=== PATIENT | male | born 1975 | race Caucasian/White ===

== ENCOUNTER 2017-03-21 10:29 | Emergency (ER) | payer OTHER ==
[~2017-03-21] VITALS: Ht 188 cm; Wt 117.5 kg
[2017-03-21 10:48] VITALS: TEMP 36.7; Ht 188 cm; Wt 117.5 kg
[2017-03-21] MEDS ORDERED: ONDANSETRON INJ 2 MG/ML 2 ML VIAL IV STA (11:28)
[2017-03-21] MEDS ORDERED: SODIUM CHLORIDE 0.9% 1000ML 1,000 ML IV STA (11:28)
[2017-03-21] MEDS ORDERED: KETOROLAC TROMETHAMINE 30 MG/ML VIAL IV STA (11:28)
[2017-03-21 11:41] LABS: BASO % 0.1 %; BASO ABS # 0.01 K/uL (0-0.2); EOS % 0.3 %; EOS ABS # 0.03 K/uL (0-0.5); HEMATOCRIT 46.4 % (42-52); HEMOGLOBIN 16.2 g/dL (14.0-18.0); IG# 0.03 K/uL (0.00-0.02); LYMPH % 12.7 %; LYMPH ABS # 1.12 K/uL (1.2-3.4); MEAN CELL VOLUME 80.4 fL (80-100); MEAN CORPUSCULAR HEMOGLOBIN 28.1 pg (25-34); MEAN CORPUSCULAR HGB CONC 34.9 g/dl (32-36); MEAN PLATELET VOLUME 9.4 fL (7.4-10.4); MONO % 3.7 %; MONO ABS # 0.33 K/uL (0.11-0.59); NEUT % 82.9 %; PLATELET COUNT 215 K/uL (130-400); RED CELL DISTRIBUTION WIDTH CV 14.5 % (11.5-14.5); RED CELL DISTRIBUTION WIDTH SD 42.2 fL (36.4-46.3); WHITE BLOOD COUNT 8.82 K/uL (4.8-10.8)
[2017-03-21 12:03] LABS: ALBUMIN 4.6 gm/dl (3.4-5.0); CALCIUM 8.8 mg/dl (8.5-10.1); CREATININE 1.16 mg/dl (0.60-1.40); POTASSIUM 3.5 mmol/L (3.5-5.1)
[2017-03-21 12:06] LABS: TOTAL PROTEIN 7.8 gm/dl (6.4-8.2)
--- NOTE | 2017-03-21 12:23 | DIAGNOSTIC IMAGING REPORT ---
KUB HISTORY: Acute left flank pain EVALUATE FOR OBSTRUCTION/LEFT STONE COMPARISON: CT abdomen and pelvis 11/11/2014 FINDINGS: The bowel gas pattern is non-obstructive. There is no organomegaly. Renal shadows are partially obscured by bowel gas. There are questioned punctate calculi projecting over the interpolar and superior pole left kidney. No definite right-sided nephrolithiasis or ureteral calculi. No pneumoperitoneum or pneumatosis. No fracture. IMPRESSION: Probable left nephrolithiasis without ureteral calculi identified. Electronically signed by: Augustine Stewart M.D. 03/21/2017 12:21 PM Dictated Date/Time: 03/21/2017 12:19 PM
--- NOTE | 2017-03-21 12:55 | DIAGNOSTIC IMAGING REPORT ---
(RENAL)RETROPERITON COMP HISTORY: Flank pain EVALUATE FOR OBSTRUCTION/LEFT STONE COMPARISON: None. FINDINGS: Right kidney: Maximum dimension 13.4 cm. No evidence for hydronephrosis Left kidney: Maximum dimension 14.2 cm. Lateral left renal hydronephrosis. Potential 4 mm distal left ureteral calculus. Bladder: No bladder wall thickening. The bilateral ureteral jets were identified. IMPRESSION: 1. Normal right kidney. 2. Mild left renal hydronephrosis. 3. Probable 4 mm obstructing calculus distal left ureter. The above report was generated using voice recognition software. It may contain grammatical, syntax or spelling errors. Electronically signed by: Vern Rangel M.D. 03/21/2017 12:54 PM Dictated Date/Time: 03/21/2017 12:52 PM
[2017-03-21] MEDS ORDERED: OXYC1TAB3 PO (13:27)
[2017-03-21 13:51] VITALS: BP 147/84; PULSE 74; O2SAT 98
--- NOTE | 2017-03-21 19:00 | EMERGENCY ROOM VISIT NOTE ---
History First contact with patient: 11:23 Chief Complaint: FLANK PAIN Stated Complaint: INTENSE PAIN, LOWER LEFT BACK PAIN, VOMITING History of Present Illness The patient is a 42 year old male who presents to the Emergency Room with complaints of severe left flank/lower back pain radiating into the left testicle. The patient reports that the pain started at 7 AM this morning. It awakened him from sleep. The patient reports that the pain is waxing and waning. At the current time, he rates his discomfort a 10 out of 10. The patient is a prior history of kidney stones, and reports that this feels the same. He denies any nausea or vomiting. The pain does not extend into the anterior abdomen. He denies any recent changes in bowel consistency or color. He denies history of GI disease. Review of Systems HEENT: Denies dizziness, visual problems, hearing loss, tinnitus. Denies difficulty swallowing or oral lesions. PULMONARY: Denies cough, shortness of breath, sputum production or hemoptysis. CARDIOVASCULAR: Denies chest pain, palpitations, dyspnea on exertion, orthopnea or peripheral edema. GASTROINTESTINAL: Denies diarrhea, constipation, nausea, vomiting, or anterior abdominal pain. GENITOURINARY: Denies dysuria, frequency, urgency or nocturia. Otherwise see history of present illness. NEUROLOGIC: Denies history of epilepsy, CVA, TIA or chronic headaches. MUSCULOSKELETAL: Denies history of joint tenderness/swelling. SKIN: Denies rashes or lesions. PSYCHIATRIC: Denies history of depression or mental illness. ENDOCRINE: Denies history of diabetes or thyroid disorders. Past Medical/Surgical History Medical Problems: (1) Calculus Of Kidney (2) Cyst Of Epididymis (3) Hepatomegaly (4) Unilat Inguinal Hernia Family History FH: heart disease FHx: cancer Hypertension Social History Smoking Status: Never Smoker Alcohol Use: occasionally Marital Status: Housing Status: lives with family Occupation Status: employed Current/Historical Medications Scheduled PRN Oxycodone Ir (Roxicodone Ir), 1-2 TAB PO Q4H PRN for Pain Physical Exam Vital Signs Date Time Temp Pulse Resp B/P (MAP) Pulse Ox O2 Delivery O2 Flow Rate FiO2 03/21/17 13:51 74 16 147/84 98 03/21/17 11:47 79 16 183/114 95 Room Air 03/21/17 10:48 36.7 81 18 187/105 99 Room Air Physical Exam CONSTITUTIONAL: Healthy and well nourished. Alert and oriented X 3 with positive affect. Patient appears in moderate discomfort from pain. HEENT: Normocephalic, atraumatic. Pupils equal, round and reactive. NECK: Full active range of motion without discomfort. RESPIRATORY: Clear to auscultation bilaterally with no wheezing, crackles, rhonchi or stridor. CARDIOVASCULAR: Regular rate and rhythm with no murmurs, rubs or gallops. GASTROINTESTINAL: Bowel sounds present in all quadrants. Negative CVA tenderness. No abdominal tenderness to palpation. No hepatosplenomegaly. MUSCULOSKELETAL: Full range of motion of all joints without discomfort. No tenderness to palpation through the lower active or SI joints. Negative logroll. Negative sitting straight leg raise. INTEGUMENTARY: No rash or other significant dermatologic conditions noted. HEMATOLOGIC: No ecchymosis or petechiae. NEUROLOGIC: No focal neurologic deficits noted. Medical Decision & Procedures ER Provider Diagnostic Interpretation: Retroperitoneal ultrasound shows a probable 4 mm distal left ureteral calculus. Mild hydronephrosis is noted. Radiologist report is as follows: (RENAL)RETROPERITON COMP HISTORY: Flank pain EVALUATE FOR OBSTRUCTION/LEFT STONE COMPARISON: None. FINDINGS: Right kidney: Maximum dimension 13.4 cm. No evidence for hydronephrosis Left kidney: Maximum dimension 14.2 cm. Lateral left renal hydronephrosis. Potential 4 mm distal left ureteral calculus. Bladder: No bladder wall thickening. The bilateral ureteral jets were identified. IMPRESSION: 1. Normal right kidney. 2. Mild left renal hydronephrosis. 3. Probable 4 mm obstructing calculus distal left ureter. My interpretation of a KUB study does not show any free air, evidence for bowel obstruction or significant fecal load. No visible ureteral calculus noted. Radiologist report is as follows: KUB HISTORY: Acute left flank pain EVALUATE FOR OBSTRUCTION/LEFT STONE COMPARISON: CT abdomen and pelvis 11/11/2014 FINDINGS: The bowel gas pattern is non-obstructive. There is no organomegaly. Renal shadows are partially obscured by bowel gas. There are questioned punctate calculi projecting over the interpolar and superior pole left kidney. No definite right-sided nephrolithiasis or ureteral calculi. No pneumoperitoneum or pneumatosis. No fracture. IMPRESSION: Probable left nephrolithiasis without ureteral calculi identified. Laboratory Results 03/21/17 11:15 Red Blood Count 5.77, Mean Corpuscular Volume 80.4, Mean Corpuscular Hemoglobin 28.1, Mean Corpuscular Hemoglobin Concent 34.9, Mean Platelet Volume 9.4, Neutrophils (%) (Auto) 82.9, Lymphocytes (%) (Auto) 12.7, Monocytes (%) (Auto) 3.7, Eosinophils (%) (Auto) 0.3, Basophils (%) (Auto) 0.1, Neutrophils # (Auto) 7.30, Lymphocytes # (Auto) 1.12, Monocytes # (Auto) 0.33, Eosinophils # (Auto) 0.03, Basophils # (Auto) 0.01 03/21/17 11:15 Test 03/21/17 11:15 03/21/17 11:45 White Blood Count 8.82 K/uL (4.8-10.8) Red Blood Count 5.77 M/uL (4.7-6.1) Hemoglobin 16.2 g/dL (14.0-18.0) Hematocrit 46.4 % (42-52) Mean Corpuscular Volume 80.4 fL (80-100) Mean Corpuscular Hemoglobin 28.1 pg (25-34) Mean Corpuscular Hemoglobin Concent 34.9 g/dl (32-36) Platelet Count 215 K/uL (130-400) Mean Platelet Volume 9.4 fL (7.4-10.4) Neutrophils (%) (Auto) 82.9 % Lymphocytes (%) (Auto) 12.7 % Monocytes (%) (Auto) 3.7 % Eosinophils (%) (Auto) 0.3 % Basophils (%) (Auto) 0.1 % Neutrophils # (Auto) 7.30 K/uL (1.4-6.5) Lymphocytes # (Auto) 1.12 K/uL (1.2-3.4) Monocytes # (Auto) 0.33 K/uL (0.11-0.59) Eosinophils # (Auto) 0.03 K/uL (0-0.5) Basophils # (Auto) 0.01 K/uL (0-0.2) RDW Standard Deviation 42.2 fL (36.4-46.3) RDW Coefficient of Variation 14.5 % (11.5-14.5) Immature Granulocyte % (Auto) 0.3 % Immature Granulocyte # (Auto) 0.03 K/uL (0.00-0.02) Anion Gap 6.0 mmol/L (3-11) Est Creatinine Clear Calc Drug Dose 114.2 ml/min Estimated GFR () 90.2 Estimated GFR (Non- 77.8 BUN/Creatinine Ratio 9.1 (10-20) Calcium Level 8.8 mg/dl (8.5-10.1) Total Bilirubin 0.7 mg/dl (0.2-1) Aspartate Amino Transf (AST/SGOT) 22 U/L (15-37) Alanine Aminotransferase (ALT/SGPT) 29 U/L (12-78) Alkaline Phosphatase 125 U/L (45-117) Total Protein 7.8 gm/dl (6.4-8.2) Albumin 4.6 gm/dl (3.4-5.0) Globulin 3.2 gm/dl (2.5-4.0) Albumin/Globulin Ratio 1.4 (0.9-2) Lipase 95 U/L (73-393) Urine Color YELLOW Urine Appearance TURBID (CLEAR) Urine pH 8.0 (4.5-7.5) Urine Specific [place] 1.017 (1.000-1.030) Urine Protein NEG (NEG) Urine Glucose (UA) NEG (NEG) Urine Ketones NEG (NEG) Urine Occult Blood NEG (NEG) Urine Nitrite NEG (NEG) Urine Bilirubin NEG (NEG) Urine Urobilinogen NEG (NEG) Urine Leukocyte Esterase NEG (NEG) Urine WBC (Auto) 1-5 /hpf (0-5) Urine RBC (Auto) 0-4 /hpf (0-4) Urine Hyaline Casts (Auto) 0 /lpf (0-5) Urine Epithelial Cells (Auto) 5-10 /lpf (0-5) Urine Bacteria (Auto) NEG (NEG) The above labs were reviewed. Urinalysis does not show any evidence for infection or hematuria. CBC is normal with no significant electrolyte abnormalities. Medications Administered Medications (Trade) Dose Ordered Sig/Marisa Route Start Time Stop Time Status Last Admin Dose Admin Sodium Chloride 1,000 ml @ 999 mls/hr Q1H1M STAT IV 03/21/17 11:28 03/21/17 12:28 DC 03/21/17 11:43 999 MLS/HR Ketorolac Tromethamine (Toradol Inj) 30 mg NOW STAT IV 03/21/17 11:28 03/21/17 11:32 DC 03/21/17 11:44 30 MG Ondansetron HCl (Zofran Inj) 4 mg NOW STAT IV 03/21/17 11:28 03/21/17 11:32 DC 03/21/17 11:44 4 MG Procedure 1. IV hydration: Normal saline 1 L bolus 2. IV medications: Toradol 30 mg and Zofran 4 mg IVP ED Course Patient history and physical exam were performed. Nurse's notes were reviewed. Vital signs were reviewed, showing an elevated blood pressure of 187/105. The patient appears in moderate discomfort from pain. IV access was established , and labs were drawn. The patient was hydrated with normal saline, and received IV analgesics and antiemetics as discussed in the previous Procedure section. Review of labs does not show any evidence for urine infection. No hematuria is noted. Remaining labs were also grossly normal. Because the patient has had a prior history of kidney stone, I elected non-CT imaging. Retroperitoneal ultrasound showed a probable 4 mm distal left ureteral calculus with mild hydronephrosis. KUB was not able to identify any ureteral calculi, but additional renal calculi were noted. On reevaluation, the patient reported minimal discomfort, and felt well enough for discharge. The patient was provided a prescription for OxyIR if needed for pain. The patient was encouraged to remain well-hydrated. He was encouraged to follow-up with his urologist if symptoms persist. Return to the emergency Department for uncontrollable pain, vomiting or fever. The patient was happy with plan of care , and rated his pain a 2 out of 10 at the conclusion of my exam. It is noted that the patient's blood pressure was elevated in the emergency department, was closer to normal at the time of discharge. I suspect that his elevated blood pressure is secondary to pain. The patient was encouraged to have his blood pressure rechecked on his next PCP office visit. Medical Decision Patient presents to the emergency department with abrupt onset of left flank pain. The patient has had a prior history of kidney stone. I elected an ultrasound study which showed a probable distal left ureteral calculus. Urinalysis does not show any evidence for infection, and remaining lab work was unremarkable. Abdominal exam is benign, therefore I do not suspect intra- abdominal etiologies. Laboratory studies are not suggestive of pancreatitis, cholecystitis, hepatitis or UTI. The patient is afebrile and has no leukocytosis to suggest infectious etiology. [facility] Monitoring Program Search Results: patient reviewed within database, no issues identified Blood Pressure Screening Patient's blood pressure: Elevated blood pressure Blood pressure disposition: Referred to PCP Impression Primary Impression: Left ureteral calculus Additional Impression: Elevated blood pressure reading Departure Information Dispostion Home / Self-Care Condition GOOD Prescriptions Oxycodone Ir (Roxicodone Ir) 5 Mg Tab 1-2 TAB PO Q4H Y for Pain, #15 TAB For Initial Treatment Prov: Thony Garduno PA 03/21/17 Forms HOME CARE DOCUMENTATION FORM, IMPORTANT VISIT INFORMATION [facility] Instructions [facility] Additional Instructions Increase fluid intake. OxyIR as needed for pain. Do not drink alcohol or drive while taking OxyIR. Follow-up with your urologist as needed for any persistent pain. Return to the emergency Department for uncontrollable pain, vomiting or developing fever. Problem Qualifiers
== END 2017-03-21 13:53 | disposition home or self-care (01) ==
LOC: C.EDB 10:31 → C.EDC 13:53
DX: N20.1 Calculus of ureter (principal); R03.0 Elevated blood-pressure reading, without diagnosis of hypertension; Z87.442 Personal history of urinary calculi; Z82.49 Family history of ischemic heart disease and other diseases of the circulatory system